=== PATIENT | female | born 1970 | race Caucasian/White ===

== ENCOUNTER → 2023-03-08 | Outpatient (CLI) | payer OTHER ==
--- NOTE | 2023-03-08 18:56 | XR ---
EXAMINATION TYPE: XR lumbosacral spine min 4V DATE OF EXAM: 03/08/2023 3:36 PM INDICATION: Patient age:Female; 52 years old; Reason for study: M54.50 LOW BACK PAIN, UNSPECIFIED; PHH. COMPARISON: None TECHNIQUE: Frontal, lateral , bilateral oblique and coned in L5-S1 lateral views of the spine. FINDINGS: No evidence of any acute osseous pathology. No evidence of loss of vertebral body height i s seen. There is normal alignment of the lumbar vertebral bodies. Mild scattered disc space narrowing . Multilevel marginal osteophyte formation throughout the visualized spine. There is facet joint arth ropathy throughout the spine. Scattered at least mild neural foraminal stenosis. IMPRESSION: 1. No acute fracture. 2. Mild multilevel disc degeneration.
== END | disposition home or self-care (01) ==
LOC: RADXRMAIN 15:13
PROVIDERS: ATTEND Family Medicine
DX: M51.36 Other intervertebral disc degeneration, lumbar region (principal)
CPT/HCPCS: 72110

== ENCOUNTER → 2024-05-24 | Outpatient (CLI) | payer OTHER ==
[2024-05-24 12:41] VITALS: BP 146/79; PULSE 65; RESP 16
--- NOTE | 2024-05-24 14:45 | P.PAINPG ---
PQRS Measure Charge Sheet Comment: HISTORY OF PRESENT ILLNESS: A 54 yr old female as a referral from Tamanna TURK presents today w severe and chronic LBP > 3 mo secondary to radiculopathy, spondylosis and facet arthropathy without myelopathy for evaluation. Pt states pain level is provoked at 6 /10 in intensity, constant, localized in the lumbar spine, predominantly axial, burning in character w occasional shooting pain towards the buttocks and LEs. Pain is provoked by bending/ lifting. Pain is alleviated by PT x 6 wks which ended in 2022, physician guided home exercises 4 times weekly since Summer 2022, heat, ice, medications (Neurontin, Tyl, Ibu), Voltaren topical, repositioning and rest . PMH: OA, MDD/ Anxiety PSH: Appendectomy, Knee Replacement, Shoulder Surgery SH: Daily tobacco use, No ETOH abuse, Cannabis use FH: Non contributory All: See list Meds: See list REVIEW OF ORGAN SYSTEMS: CONSTITUTIONAL: No fevers or chills. No recent weight loss. NEUROLOGICAL: + numbness and tingling along the distal extremities. No seizure disorders or headaches. MUSCULOSKELETAL: + pain PSYCHIATRIC: Denies current depression or suicidal thoughts. Physical Examinations : Constitutional : Cooperative , not in acute distress . Neurologic : Cranial nerve II to XII intact. No focal neurological deficits. Psychiatric : alert & oriented x 3. Matching mood & appropriate affect. Judgment & insight intact. Musculoskeletal : Cervical Spine Motor strength in the deltoid and biceps: Normal right side. Normal Left side Motor strength biceps and the wrist extensors: Normal right side . Normal left side Motor strength in the triceps muscle: Normal right side. Normal left side Deep tendon reflexes: Normal at the biceps. Normal at Brachioradialis. Normal at triceps Vertebral body tenderness to deep palpation over Cervical facet loading test: positive bilaterally Spurling test: positive bilaterally Neck distraction test: positive bilaterally Edith sign: positive bilaterally Lumbar spine Motor strength lower extremities ,thigh and legs 5/5 Right side , 5/5 Left side Deep tendon reflexes : Normal Knee Jerk. Normal Ankle Jerk Vertebral body tenderness over Campos Test positive L5-S1 BL Lumbar facet Loading Test: positive Right / positive Left Range of motion of the lumbar spine Flexion 30 degrees, extension 10 degrees Straight Leg Raise test: Left/ Right positive at degrees Win test: positive right / positive left. Severe tenderness over the Sacroiliac joint on the Right / Left sides Gaenslen test: positive bilaterally Seated flexion test: positive bilaterally. Sacral spine : Severe tenderness over the Sacroiliac joint: right side / left side Range of motion: Flexion of the lumbar spine <60 degrees Range of motion: Extension of the lumbar spine <20 degrees Gaenslen's Test positive Win test: positive right side / left side Thigh Thrust Test Sacral Thrust Test Imaging: Lumbar xray from 03/08/23 reviewed Assessment/ Plan : Lumbar radiculopathy Recommendation of MRI non contrast lumbar spine M54.16. Physician guided exercise plan provided for pt to supplement plan she is currently on. All questions answered. I have spent greater than 30 minutes on patient care today. Dr Buckley was available by phone for the evaluation of this patient. The time was used to review the medical records including relevant urine studies and Prescription history (MAPs), review of the available imaging, evaluation and examination of the patient, coordination of care with the medical staff and if applicable referring physicians, as well as creation of the medical record PQRS Narrative: Smoking Status Current every day smoker Home Medications: Ambulatory Orders Gabapentin [Neurontin] 100 mg PO DAILY 05/24/24 Gabapentin [Neurontin] 200 mg PO BID 05/24/24 Pramipexole [Mirapex] 1.5 mg PO HS 05/24/24 traZODone HCL [Desyrel] 100 mg PO HS 05/24/24 Controlled Substance Measures - Controlled Substance Measures Is patient prescribed a controlled substance at discharge?: No
== END ==
LOC: PNWHC3 12:05
PROVIDERS: ATTEND Specialist
DX: G89.4 Chronic pain syndrome (principal); G62.9 Polyneuropathy, unspecified; M47.26 Other spondylosis with radiculopathy, lumbar region; F17.200 Nicotine dependence, unspecified, uncomplicated
CPT/HCPCS: 99211

== ENCOUNTER → 2024-05-29 | Outpatient (CLI) | payer OTHER ==
--- NOTE | 2024-05-29 15:35 | MR ---
EXAMINATION TYPE: MR lumbar spine wo con DATE OF EXAM: 05/29/2024 COMPARISON: Lumbosacral spine radiograph 03/08/2023, CT lumbar spine 09/26/2012, MRI C-spine/L-spine HISTORY: low back pain down right legs. both legs weak TECHNIQUE: Multiplanar, multisequence images of the lumbar spine were acquired without IV contrast. FINDINGS: The lumbar vertebral bodies do have preserved heights. No spondylolisthesis. Minimal levoc urvature of the lumbar spine with apex at L2-L3. No significant disc height loss. No abnormal STIR si gnal. The conus medullaris and the distal spinal cord do appear unremarkable with regards to their si gnal intensity and morphology. L1-L2: No significant disc pathology is identified. The spinal canal and neural foramen are patent. L2-L3: No significant disc pathology is identified. The spinal canal and neural foramen are patent. L3-L4: Eccentric left subarticular zone and foraminal zone broad-based disc bulge. No significant ce ntral canal stenosis. Right neuroforamen is patent. Mild left neural foraminal stenosis. L4-L5: Broad based disc bulge. The spinal canal remains patent. Bilateral facet arthropathy. Neural c anals are mildly narrowed bilaterally. L5-S1: The intervertebral disc appears round on its contour posteriorly without significant mass eff ect upon the thecal sac. Facet joints are enlarged. Right neuroforamen is patent. Minimal left neura l foraminal narrowing. Other significant findings: None. IMPRESSION: 1. No definitive evidence for disc herniation or significant spinal canal stenosis. 2. Mild multilevel disc degeneration and facet arthropathy as described above. [facility], , 05/29/2024 3:32 PM
== END | disposition home or self-care (01) ==
LOC: RADMRIMAIN 14:17
PROVIDERS: ATTEND Specialist
DX: M54.16 Radiculopathy, lumbar region
CPT/HCPCS: 72148

== ENCOUNTER → 2024-06-14 | Outpatient (CLI) | payer OTHER ==
[2024-06-14 13:40] VITALS: BP 129/72; PULSE 61; RESP 16; TEMP 98.4
--- NOTE | 2024-06-14 14:00 | P.PAINPG ---
PQRS Measure Charge Sheet Comment: HISTORY OF PRESENT ILLNESS: A 54 yr old female presents today w severe and chronic LBP > 3 mo secondary to radiculopathy, spondylosis and facet arthropathy without myelopathy for MRI results. Pt states pain level is provoked at 6 /10 in intensity, constant, localized in the lumbar spine, predominantly axial, burning in character w occasional shooting pain towards the buttocks and LEs. Pain is provoked by bending/ lifting. Pain is alleviated by PT x 6 wks which ended in 2022, physician guided home exercises 4 times weekly since Summer 2022, heat, ice, medications, topical, repositioning and rest . Interventional procedures include L shoulder injection x1 (2023) Medications include Nurontin, Tyl, Ibu, Voltaren Gel, Cannabis use REVIEW OF ORGAN SYSTEMS: CONSTITUTIONAL: No fevers or chills. No recent weight loss. NEUROLOGICAL: + numbness and tingling along the distal extremities. No seizure disorders or headaches. MUSCULOSKELETAL: + pain PSYCHIATRIC: Denies current depression or suicidal thoughts. Physical Examinations : Constitutional : Cooperative , not in acute distress . Neurologic : Cranial nerve II to XII intact. No focal neurological deficits. Psychiatric : alert & oriented x 3. Matching mood & appropriate affect. Judgment & insight intact. Musculoskeletal : Cervical Spine Motor strength in the deltoid and biceps: Normal right side. Normal Left side Motor strength biceps and the wrist extensors: Normal right side . Normal left side Motor strength in the triceps muscle: Normal right side. Normal left side Deep tendon reflexes: Normal at the biceps. Normal at Brachioradialis. Normal at triceps Vertebral body tenderness to deep palpation over Cervical facet loading test: positive bilaterally Spurling test: positive bilaterally Neck distraction test: positive bilaterally Edith sign: positive bilaterally Lumbar spine Motor strength lower extremities ,thigh and legs 5/5 Right side , 5/5 Left side Deep tendon reflexes : Normal Knee Jerk. Normal Ankle Jerk Vertebral body tenderness over L4 Campos Test positive BL L4-L5 Lumbar facet Loading Test: positive Right / positive Left Range of motion of the lumbar spine Flexion 30 degrees, extension 10 degrees Straight Leg Raise test: Left/ Right positive at degrees Win test: positive right / positive left. Severe tenderness over the Sacroiliac joint on the Right / Left sides Gaenslen test: positive bilaterally Seated flexion test: positive bilaterally. Sacral spine : Severe tenderness over the Sacroiliac joint: right side / left side Range of motion: Flexion of the lumbar spine <60 degrees Range of motion: Extension of the lumbar spine <20 degrees Gaenslen's Test positive Win test: positive right side / left side Thigh Thrust Test Sacral Thrust Test Imaging: MRI non contrast Lumbar from 05/29/24 reviewed Assessment/ Plan : L4-L5 radiculopathy Recommendation of IRINA L4-L5 #1. Risks, benefits of procedure discussed and pt verbalized understanding. Protocol for discontinuation/ continuation of medications chris procedure discussed. All questions answered. I have spent greater than 30 minutes on patient care today. Dr Buckley was available by phone for the evaluation of this patient. The time was used to review the medical records including relevant urine studies and Prescription history (MAPs), review of the available imaging, evaluation and examination of the patient, coordination of care with the medical staff and if applicable referring physicians, as well as creation of the medical record PQRS Narrative: Smoking Status Current every day smoker Hx Alcohol Use (MH) No Home Medications: Ambulatory Orders Gabapentin [Neurontin] 100 mg PO DAILY 05/24/24 Gabapentin [Neurontin] 200 mg PO BID 05/24/24 Pramipexole [Mirapex] 1.5 mg PO HS 05/24/24 traZODone HCL [Desyrel] 100 mg PO HS 05/24/24 Controlled Substance Measures - Controlled Substance Measures Is patient prescribed a controlled substance at discharge?: No
== END ==
LOC: PNWHC3 12:37
PROVIDERS: ATTEND Specialist
DX: M54.16 Radiculopathy, lumbar region
CPT/HCPCS: 99211

== ENCOUNTER → 2024-07-06 | Outpatient (CLI) | payer OTHER ==
--- NOTE | 2024-07-06 20:36 | MR ---
EXAMINATION TYPE: MR brain wo/w con DATE OF EXAM: 07/06/2024 8:30 PM COMPARISON: 05/27/2015. CLINICAL INDICATION: Female, 54 years old with history of G89.4 CHRONIC PAIN SYNDROME; PHH, Headaches , muscle weakness, trouble walking, Dizziness, Memory loss, Weakness/numbness bilateral, TECHNIQUE: Multi planar, multi sequence imaging was performed through the brain including: T1, T2, In version recovery, susceptibility weighted imaging and gradient echo imaging and Diffusion weighted im aging. The patient was then given intravenous contrast and multi planar, T1 fat-saturation images wer e obtained. IV Contrast: 5.5 mL Gadavist FINDINGS: The hernandez-white junctions, ventricular system, basal cisterns appear unremarkable. Diffusion-weighted imaging shows no evidence of restricted diffusion to suggest acute/subacute infarct. Intracranial ar terial flow voids are maintained. Midline structures show no abnormality. Scattered foci of high T2 s ignal intensity are seen within the periventricular white matter. The susceptibility weighted images do not reveal any evidence for micro-hemorrhage. After administration of gadolinium, no abnormal enha ncement is seen. The bone marrow signal is within normal limits. Paranasal sinuses and mastoid air cells: No significant paranasal sinus disease. Visualized orbits: Orbital contents are intact. IMPRESSION: 1. No evidence of intracranial mass, acute/subacute infarct, or abnormal enhancement. 2. No evidence for active demyelination, Nonspecific white matter changes, likely related to small ve ssel ischemic disease. [facility], , 07/06/2024 8:33 PM
== END | disposition home or self-care (01) ==
LOC: RADMRIMAIN 21:00
PROVIDERS: ATTEND Family Medicine
DX: G93.9 Disorder of brain, unspecified (principal); G89.4 Chronic pain syndrome; M62.81 Muscle weakness (generalized); R42 Dizziness and giddiness
CPT/HCPCS: 70553; A9585